=== PATIENT | female | born 2005 ===

== ENCOUNTER 2023-04-03 09:04 | Outpatient (CLI) | payer OTHER, SELFPAY ==
--- NOTE | ~2023-04-03 | MR_ITS ---
EXAMINATION: MR ankle RT wo con DATE: 04/03/2023 09:47 INDICATION: Right ankle tendon tear presenting with generalized right ankle pain and swelling post in jury 2 days prior TECHNIQUE: Magnetic resonance imaging (MRI) of the right ankle was performed without intravenous cont rast. Sequences included sagittal, coronal, and axial proton-density weighted fast spin echo without and with fat saturation. COMPARISON: None. FINDINGS: Medial ankle ligaments: Deep and superficial deltoid ligaments as well as the spring ligament are normal. Lateral ankle ligaments: The anterior and posterior inferior tibiofibular ligaments are normal. High-grade partial if not comp lete tears at the fibular sides of both the anterior talofibular and calcaneofibular ligaments. The p osterior talofibular ligament is normal. Tendons: Achilles tendon is normal. The peroneus longus and brevis tendons are normal. The tibialis anterior a nd extensor hallucis longus and extensor digitorum longus tendons are normal. The tibialis posterior, flexor digitorum longus and flexor hallucis longus tendons are normal. Plantar fascia: Plantar aponeurosis is normal. Bones/other: Bone alignment is normal. Normal marrow signal throughout with no fracture or pathologic marrow repla cing process. Fluid: Prominent subcutaneous edema about the lateral malleolus extending distally along the dorsolateral as pect of the foot. Physiologic amount fluid in the joint spaces. IMPRESSION: 1. Lateral ankle sprain with high-grade partial if not complete tears at the fibular insertions of th e anterior talofibular and calcaneofibular ligaments. Reviewed, dictated and finalized at location L. IMPRESSION: 1. Lateral ankle sprain with high-grade partial if not complete tears at the fi bular insertions of the anterior talofibular and calcaneofibular ligaments.
== END 2023-04-03 09:05 ==
DX: S96.911A Strain of unspecified muscle and tendon at ankle and foot level, right foot, initial encounter (principal); X58.XXXA Exposure to other specified factors, initial encounter
CPT/HCPCS: 73721